=== PATIENT | female | born 1960 | race Caucasian/White ===

== ENCOUNTER → 2018-03-14 06:10 | Outpatient (CLI) | payer BC, SELFPAY ==
--- NOTE | 2018-03-14 06:13 | ECHOCS_ITS ---
Reason For Study: MVP Procedure This was a 2D Doppler, Color Flow transthoracic echocardiogram. The study was technically difficult. Contrast injection was performed. Exam performed in department. Left Ventricle Normal LV size. Left ventricular systolic function is normal. The estimated ejection fraction is 65 %. Normal diastology for age. No regional wall motion abnormalities noted. Right Ventricle Normal RV size. Normal systolic function. Atria The left atrium is mildly enlarged. Normal right atrium. No doppler evidence for ASD. Mitral Valve There is no mitral annular calcification. Normal mitral valve. Trivial mitral valve insufficiency. Tricuspid Valve Normal tricuspid valve. Trivial tricuspid valve insufficiency. Right ventricular systolic pressure estimated to be 30 mmHg. Aortic Valve The aortic valve is not well visualized. Pulmonic Valve The pulmonic valve is not well visualized. Great Vessels Normal sized aortic root. Pericardium/Pleural No pericardial effusion. Medication 22 gauge I.V. with prn adaptor inserted into right arm. [id number] given slow IV push to enhance endocardial definition. MMode/2D Measurements & Calculations LVIDd: 4.9 cm IVSd: 1.3 cm Ao root diam: 3.4 cm LVIDs: 3.6 cm LVPWd: 1.2 cm LA dimension: 3.6 cm RVDd: 3.3 cm FS: 25.8 % LAV(MOD-bp): 53.6 ml LVAd ap4: 33.5 cm2 EDV(MOD-sp2): 72.0 ml LAV(MOD-bp) Indexed: 24.3 ml/m2 EDV(MOD-sp4): 105.7 ml EF(MOD-sp2): 71.7 % LAV(MOD-sp2): 40.2 ml EDV(sp4-el): 114.7 ml LAV(MOD-sp4): 59.7 ml LVAs ap4: 17.9 cm2 ESV(MOD-sp4): 38.4 ml ESV(sp4-el): 42.7 ml EF(MOD-sp4): 63.6 % EF(sp4-el): 62.7 % SV(MOD-sp4): 67.3 ml SV(MOD-sp2): 51.7 ml SV(sp4-el): 71.9 ml LA A4 area: 21.8 cm2 RA A4 area: 12.1 cm2 Doppler Measurements & Calculations MV E max keenan: 96.3 cm/sec Lat Peak E' Keenan: 11.7 cm/sec Med Peak E' Keenan: 9.9 cm/sec MV A max keenan: 85.7 cm/sec E/E' lat: 8.2 E/E' med: 9.7 MV E/A: 1.1 Ao V2 max: 193.5 cm/sec LV V1 max: 103.6 cm/sec PA V2 max: 119.2 cm/sec Ao max P.0 mmHg LV V1 max P.3 mmHg TR max keenan: 254.7 cm/sec TR max P.5 mmHg Interpretation Summary The study was technically difficult. Contrast injection was performed. Left ventricular systolic function is normal. The estimated ejection fraction is 65 %. The left atrium is mildly enlarged. Trivial mitral valve insufficiency. Trivial tricuspid valve insufficiency. Right ventricular systolic pressure estimated to be 30 mmHg. Normal diastology for age. Ordering Physician: Be Leigh Referring Physician: Be Leigh Performed By: Noemi Shetty, RDCS, RVT
--- NOTE | 2018-03-14 13:38 | STRESSREP ---
Stress Test Report Date: 03/14/2018 Procedure: Exercise tolerance test/imaging study Indications: Chest pain Consent: Per the patient Procedure: The patient exercised on a Abner protocol for 6 minutes completing Stage 2 achieving a peak heart rate of 150 bpm (91 % predicted maximal heart rate) with a peak blood pressure 190/70 mmHg and a peak MET capacity of 7 METs. The baseline ECG demonstrated normal sinus rhythm. The peak exercise ECG demonstrated no obvious ECG changes. There were occasional PVCs during exercise and recovery. The functional capacity was considered average. There was no complaint of chest discomfort during exercise or recovery. The examination was discontinued secondary to dyspnea and leg discomfort. Impression: 1. Technically adequate (percent predicted maximal heart rate greater than 85%) exercise tolerance test 2. Peak exercise ECG no obvious ECG changes 3. Were occasional PVCs during exercise and recovery 4. Nuclear images pending Myocardial perfusion imaging study: Technique: The patient was injected with 14.6 mCi of technetium 99m Cardiolite and subsequently rest SPECT Cardiolite nuclear imaging was obtained in the horizontal long, vertical long, and short axis views. The patient exercised on a Abner protocol for 6 minutes completing Stage 2 achieving a peak heart rate of 150 bpm (91 % predicted maximal heart rate) with a peak blood pressure 190/70 mmHg and a peak MET capacity of 7 METs. The patient was injected with 44.8 mCi of technetium 99m Cardiolite and subsequently stress SPECT Cardiolite nuclear imaging was obtained in the horizontal long, vertical long, and short axis views. A gated Cardiolite study at peak stress was obtained. Interpretation: Rest and stress SPECT Cardiolite nuclear imaging status post realignment, normalization, and attenuation correction, demonstrates at rest the appearance of diminished tracer uptake in portions of the anterior and anteroseptal segments which appears to improve and/or normalize following stress. There is end systolic thickening and brightening. The gated Cardiolite study demonstrates myocardial thickening and inward wall motion. The reported LVEF is 65 %. Impression: 1. Rest and stress SPECT Cardiolite nuclear imaging demonstrate myocardial perfusion changes at rest which appear to improve and/or normalize following stress appearing compatible with shifting soft tissue attenuation/artifact with no myocardial perfusion changes considered diagnostic for associated stress-induced myocardial ischemia or previous myocardial injury/infarction. 2. The gated Cardiolite study reports an LVEF of the 65%. This note was generated with [employer] software. It may contain incorrect words, spelling, and punctuation that were not noted in checking the note before signing.
--- NOTE | 2018-03-14 13:42 | STRESSREP_ITS ---
Stress Test Report Date: 03/14/2018 Procedure: Exercise tolerance test/imaging study Indications: Chest pain Consent: Per the patient Procedure: The patient exercised on a Abner protocol for 6 minutes completing Stage 2 achieving a peak heart rate of 150 bpm (91 % predicted maximal heart rate) with a peak blood pressure 190/70 mmHg and a peak MET capacity of 7 METs. The baseline ECG demonstrated normal sinus rhythm. The peak exercise ECG demonstrated no obvious ECG changes. There were occasional PVCs during exercise and recovery. The functional capacity was considered average. There was no complaint of chest discomfort during exercise or recovery. The examination was discontinued secondary to dyspnea and leg discomfort. Impression: 1. Technically adequate (percent predicted maximal heart rate greater than 85%) exercise tolerance test 2. Peak exercise ECG no obvious ECG changes 3. Were occasional PVCs during exercise and recovery 4. Nuclear images pending Myocardial perfusion imaging study: Technique: The patient was injected with 14.6 mCi of technetium 99m Cardiolite and subsequently rest SPECT Cardiolite nuclear imaging was obtained in the horizontal long, vertical long, and short axis views. The patient exercised on a Abner protocol for 6 minutes completing Stage 2 achieving a peak heart rate of 150 bpm (91 % predicted maximal heart rate) with a peak blood pressure 190/70 mmHg and a peak MET capacity of 7 METs. The patient was injected with 44.8 mCi of technetium 99m Cardiolite and subsequently stress SPECT Cardiolite nuclear imaging was obtained in the horizontal long, vertical long, and short axis views. A gated Cardiolite study at peak stress was obtained. Interpretation: Rest and stress SPECT Cardiolite nuclear imaging status post realignment, normalization, and attenuation correction, demonstrates at rest the appearance of diminished tracer uptake in portions of the anterior and anteroseptal segm ents which appears to improve and/or normalize following stress. There is end systolic thickening and brightening. The gated Cardiolite study demonstrates myocardial thickening and inward wall motion. The reported LVEF is 65 %. Impression: 1. Rest and stress SPECT Cardiolite nuclear imaging demonstrate myocardial perfusion changes at rest which appear to improve and/or normalize following st ress appearing compatible with shifting soft tissue attenuation/artifact with no myocardial perfusion changes considered diagnostic for associated stress-induced myocardial ischemia or previous myocardial injury/infarction. 2. The gated Cardiolite study reports an LVEF of the 65%. This note was generated with [employer] software. It may contain incorrect words, spelling, and punctuation that were not noted in checking the note before signing.
== END ==
PROVIDERS: Referring Provider Internal Medicine Cardiovascular Disease; Visit Provider Internal Medicine Cardiovascular Disease
DX: R07.9 Chest pain, unspecified (principal); I34.1 Nonrheumatic mitral (valve) prolapse
CPT/HCPCS: 78452; 93017; 93306; A9500; Q9957; A4216; C8929

== ENCOUNTER 2018-03-21 08:21 | Outpatient (RCR) | payer BC, SELFPAY ==
[2018-03-21 08:48] VITALS: BP 129/79; PULSE 71; RESP 18; TEMP 37; BMI 47.0
--- NOTE | 2018-03-21 09:54 | PCM.WC.HP ---
(1) Swelling of lower extremity Status: Chronic Current Visit: Yes Code(s): M79.89 - Other specified soft tissue disorders (2) Morbid obesity with BMI of 45.0-49.9, adult Status: Chronic Current Visit: Yes Code(s): E66.01 - Morbid (severe) obesity due to excess calories; Z68.42 - Body mass index (BMI) 45.0-49.9, adult (3) Sleep apnea Status: Chronic Current Visit: No Code(s): G47.30 - Sleep apnea, unspecified (4) Bipolar disorder Status: Chronic Current Visit: No Code(s): F31.9 - Bipolar disorder, unspecified (5) Schizoaffective disorder Status: Chronic Current Visit: No Code(s): F25.9 - Schizoaffective disorder, unspecified (6) Depression Status: Chronic Current Visit: No Code(s): F32.9 - Major depressive disorder, single episode, unspecified (7) History of skin cancer Status: Chronic Current Visit: No Code(s): Z85.828 - Personal history of other malignant neoplasm of skin (8) Bilateral edema of lower extremity Status: Chronic Current Visit: Yes Code(s): R60.0 - Localized edema (9) Venous insufficiency Status: Chronic Current Visit: Yes Code(s): I87.2 - Venous insufficiency (chronic) (peripheral) History of Present Illness Date of Service: 03/21/18 Chief Complaint: Chronic swelling and edema of the lower extremities bilaterally History of Wound: This is a 57-year-old female with a long-standing history of swelling and edema in her lower extremities bilaterally. The swelling and edema has been present for many years. She has been referred by her acute dialysis registered nurse, Dr. Leigh, for evaluation and management. The patient claims to sleep on a flat mattress at night. She indicates that she is not very active. 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 She also sits a great deal at home. She denies a history of thrombophlebitis. Past Medical History Past Medical History: Chronic Problems (Last Updated 03/16/18 @ 09:46 by Mary Pappas) Swelling of lower extremity (Chronic) Morbid obesity with BMI of 45.0-49.9, adult (Chronic) Sleep apnea (Chronic) Bipolar disorder (Chronic) Schizoaffective disorder (Chronic) Depression (Chronic) History of skin cancer (Chronic) Bilateral edema of lower extremity (Chronic) Venous insufficiency (Chronic) Past Medical History: The patient denies a history of myocardial infarction, congestive heart failure, cerebrovascular accident, diabetes mellitus, hypertension, pulmonary disease, renal disease, thyroid disease, and hyperlipidemia. She has a history of skin cancer in the past, which has been excised. Surgical History: tonsillectomy, - - The patient is a AB 1 (medical termination) Allergies/Adverse Reactions: Allergies bacitracin [From Neosporin ([id number])] Adverse Reaction (Unknown, Verified 02/02/18 13:14) Unknown neomycin [From Neosporin ([id number])] Adverse Reaction (Unknown, Verified 02/02/18 13:14) Unknown polymyxin B [From Neosporin ([id number])] Adverse Reaction (Unknown, Verified 02/02/18 13:14) Unknown Home Medications: Ambulatory Orders Medication Instructions Recorded aripiprazole 15 mg tablet 15 mg PO DAILY 01/26/18 ascorbic acid (vitamin C) 500 mg 500 mg PO DAILY 01/26/18 tablet minocycline 50 mg capsule 50 mg PO .3xweek cap 01/26/18 multivitamin tablet 1 tab PO DAILY 01/26/18 omega-3 fatty acids 1,000 mg 1,000 mg PO DAILY 01/26/18 capsule vitamin B complex tablet 1 tab PO DAILY 01/26/18 cholecalciferol (vitamin D3) 2,000 1,000 unit PO DAILY tab 02/02/18 unit tablet propranolol 10 mg tablet 10 mg PO BID 02/02/18 - Family History Paternal Family History: Family History (Last Reviewed 02/02/18 @ 13:20 by Mary Pappas) Mother Hypertension Father CAD (coronary artery disease) History of coronary artery bypass surgery Social History: The patient is employed in logistics. Lives: Alone Smoking Status: Never smoker Tobacco Use: Non-smoker Alcohol: Rare Drugs: None Review of Systems Constitutional: Denies: Chills, Fever, Weight Change Eyes: Denies: Pain, Vision Change HEENT: Denies: Difficulty Hearing, Difficulty Swallowing, Sinus Congestion Cardiovascular: Denies: Chest Pain, Palpitations Respiratory: Denies: Cough, Shortness of Breath Gastrointestinal: Denies: Diarrhea, Nausea, Vomiting Genitourinary: Denies: Dysuria, Hematuria Endocrine: Denies: Heat/ Cold Intolerance, Polydipsia, Polyuria Hematologic/ Lymphatic: Denies: Easy Bruising, Easy Bleeding - Physical Exam Vital Signs Temp Pulse Resp BP 98.6 F 71 18 129/79 H 03/21/18 08:48 03/21/18 08:48 03/21/18 08:48 03/21/18 08:48 General: Alert, Oriented x3, Cooperative, No apparent distress, Well developed, Well nourished, - - The patient is obese HEENT: Atraumatic, PERRLA, EOMI, Normocephalic Oral: Moist Mucosa, No Gingival or Mucosal Lesions/ Ulcerations Neck: Supple, No JVD, Negative Carotid Bruits, Negative Hepatojugular Reflux, No Nodes, No Nuchal Rigidity, Trachea Midline Lungs: Clear to auscultation, Normal air movement, No rhonchi, No wheeze, No rales Cardiovascular: Regular rate, Regular Rhythm, Normal S1, Normal S2, No murmurs Abdomen: Soft, Non Tender, Non-Distended, Obese Extremities: No clubbing, No cyanosis, No Calf Tenderness, Edema, - - Bilateral lower extremity swelling and edema is noted. It is moderate in severity. There are no open ulcerations or wounds. Circumference measurements are documented elsewhere. There are no significant skin changes in the lower extremities. Skin: No rashes, No breakdown Wound Measurements and Assessment WC - Nurse 1 - General Ulcer Measurement Start: 03/21/18 08:47 Freq: Status: Active Protocol: Activity Type Activity Date Activity User E-Sign Co-Sign Detail Recorded Client Recorded Date Recorded By Document 03/21/18 08:48 [id number] 03/21/18 09:15 03/21/18 08:48 Wound Center Nurse 1 [Edema Assessment] -Right Calf (cm) 43 -Right Ankle (cm) 31.5 -Left Calf (cm) 42.0 -Left Ankle (cm) 30.5 WC - Nurse 2 - General Ulcer CM Notes Start: 03/21/18 08:47 Freq: Status: Active Protocol: Activity Type Activity Date Activity User E-Sign Co-Sign Detail Recorded Client Recorded Date Recorded By Document 03/21/18 09:39 [id number] 03/21/18 09:42 03/21/18 09:39 Pain Scale: 0-10 Numeric [Pain] -Is Patient Pain Free? Yes Musculoskeletal: No Muscle Wasting Neurological: Cranial nerves II-XII grossly intact, Neuro grossly intact Psych/Mental Status: Normal Affect, Appropriate, Alert and oriented to time, place, person, mood and affect Debridement Note Post-Debridement Measurements/Treatment WC - Nurse 2 - General Ulcer CM Notes Start: 03/21/18 08:47 Freq: Status: Active Protocol: Activity Type Activity Date Activity User E-Sign Co-Sign Detail Recorded Client Recorded Date Recorded By Document 03/21/18 09:39 [id number] 03/21/18 09:42 03/21/18 09:39 Pain Scale: 0-10 Numeric Is Patient Pain Free? Yes No debridement was completed today Assessment/Plan Active Problems (Last Updated 03/16/18 @ 09:46 by Mary Pappas) Swelling of lower extremity (Chronic) Morbid obesity with BMI of 45.0-49.9, adult (Chronic) Bilateral edema of lower extremity (Chronic) Venous insufficiency (Chronic) Assessment: This is a 57-year-old female with a long-standing history of swelling and edema in her lower extent bilaterally. It appears as though this may be due to long-term dependency. The patient was also noted to be overweight. The patient's other pre-existing medical conditions have been documented above. Plan: Conservative treatment measures have been discussed with the patient thoroughly. She is to elevate her lower extremities as much as possible. This is to be accomplished even during daytime hours. She currently sleeps on a flat mattress at night. Her legs are to be elevated at heart level, or higher. Activity has been encouraged. Weight loss has also been encouraged. She has been advised to refrain from prolonged idle sitting. We are to obtain a noninvasive lower extremity arterial study, as well as a venous duplex examination. The patient will return in 1-2 weeks following completion of these studies. It is anticipated that we will implement the use of compression to her lower extremities, once the arterial status of the lower extremities is defined. It is anticipated that we will start with compression wraps, such as SurePress, and ultimately transition to the use of graduated compression stockings or CircAid garments. Influenza vaccine was not administered today. The patient is not a smoker. Patient weighs 274 pounds. She stands 5 feet 4 inches tall. Her BMI is 47, which places her in a class III overweight category. Weight loss has been recommended, and collaboration with her primary care physician has been recommended.
--- NOTE | 2018-03-21 09:59 | HP.PCM_ITS ---
(1) Swelling of lower extremity Status: Chronic Current Visit: Yes Code(s): M79.89 - Other specified soft tissue disorders (2) Morbid obesity with BMI of 45.0-49.9, adult Status: Chronic Current Visit: Yes Code(s): E66.01 - Morbid (severe) obesity due to excess calories; Z68.42 - Body mass index (BMI) 45.0-49.9, adult (3) Sleep apnea Status: Chronic Current Visit: No Code(s): G47.30 - Sleep apnea, unspecified (4) Bipolar disorder Status: Chronic Current Visit: No Code(s): F31.9 - Bipolar disorder, unspecified (5) Schizoaffective disorder Status: Chronic Current Visit: No Code(s): F25.9 - Schizoaffective disorder, unspecified (6) Depression Status: Chronic Current Visit: No Code(s): F32.9 - Major depressive disorder, single episode, unspecified (7) History of skin cancer Status: Chronic Current Visit: No Code(s): Z85.828 - Personal history of other malignant neoplasm of skin (8) Bilateral edema of lower extremity Status: Chronic Current Visit: Yes Code(s): R60.0 - Localized edema (9) Venous insufficiency Status: Chronic Current Visit: Yes Code(s): I87.2 - Venous insufficiency (chronic) (peripheral) History of Present Illness Date of Service: 03/21/18 Chief Complaint: Chronic swelling and edema of the lower extremities bilaterally History of Wound: This is a 57-year-old female with a long-standing history of swelling and edema in her lower extremities bilaterally. The swelling and edema has been present for many years. She has been referred by her front end software engineer, Dr. Leigh, for evaluation and management. The patient claims to sleep on a flat mattress at night. She indicates that she is not very active. 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 She also sits a great deal at home. She denies a history of thrombophlebitis. Past Medical History Past Medical History: Chronic Problems (Last Updated 03/16/18 @ 09:46 by Mary Pappas) Swelling of lower extremity (Chronic) Morbid obesity with BMI of 45.0-49.9, adult (Chronic) Sleep apnea (Chronic) Bipolar disorder (Chronic) Schizoaffective disorder (Chronic) Depression (Chronic) History of skin cancer (Chronic) Bilateral edema of lower extremity (Chronic) Venous insufficiency (Chronic) Past Medical History: The patient denies a history of myocardial infarction, congestive heart failure, cerebrovascular accident, diabetes mellitus, hypertension, pulmonary disease, renal disease, thyroid disease, and hyperlipidemia. She has a history of skin cancer in the past, which has been excised. Surgical History: tonsillectomy, - - The patient is a AB 1 (medical termination) Allergies/Adverse Reactions: Allergies bacitracin [From Neosporin ([id number])] Adverse Reaction (Unknown, Verified 02/02/18 13:14) Unknown neomycin [From Neosporin ([id number])] Adverse Reaction (Unknown, Verified 02/02/18 13:14) Unknown polymyxin B [From Neosporin ([id number])] Adverse Reaction (Unknown, Verified 02/02/18 13:14) Unknown Home Medications: Ambulatory Orders Medication Instructions Recorded aripiprazole 15 mg tablet 15 mg PO DAILY 01/26/18 ascorbic acid (vitamin C) 500 mg 500 mg PO DAILY 01/26/18 tablet minocycline 50 mg capsule 50 mg PO .3xweek cap 01/26/18 multivitamin tablet 1 tab PO DAILY 01/26/18 omega-3 fatty acids 1,000 mg 1,000 mg PO DAILY 01/26/18 capsule vitamin B complex tablet 1 tab PO DAILY 01/26/18 cholecalciferol (vitamin D3) 2,000 1,000 unit PO DAILY tab 02/02/18 unit tablet propranolol 10 mg tablet 10 mg PO BID 02/02/18 - Family History Paternal Family History: Family History (Last Reviewed 02/02/18 @ 13:20 by Mary Pappas) Mother Hypertension Father CAD (coronary artery disease) History of coronary artery bypass surgery Social History: The patient is employed in logistics. Lives: Alone Smoking Status: Never smoker Tobacco Use: Non-smoker Alcohol: Rare Drugs: None Review of Systems Constitutional: Denies: Chills, Fever, Weight Change Eyes: Denies: Pain, Vision Change HEENT: Denies: Difficulty Hearing, Difficulty Swallowing, Sinus Congestion Cardiovascular: Denies: Chest Pain, Palpitations Respiratory: Denies: Cough, Shortness of Breath Gastrointestinal: Denies: Diarrhea, Nausea, Vomiting Genitourinary: Denies: Dysuria, Hematuria Endocrine: Denies: Heat/ Cold Intolerance, Polydipsia, Polyuria Hematologic/ Lymphatic: Denies: Easy Bruising, Easy Bleeding - Physical Exam Vital Signs Temp Pulse Resp BP 98.6 F 71 18 129/79 H 03/21/18 08:48 03/21/18 08:48 03/21/18 08:48 03/21/18 08:48 General: Alert, Oriented x3, Cooperative, No apparent distress, Well developed, Well nourished, - - The patient is obese HEENT: Atraumatic, PERRLA, EOMI, Normocephalic Oral: Moist Mucosa, No Gingival or Mucosal Lesions/ Ulcerations Neck: Supple, No JVD, Negative Carotid Bruits, Negative Hepatojugular Reflux, No Nodes, No Nuchal Rigidity, Trachea Midline Lungs: Clear to auscultation, Normal air movement, No rhonchi, No wheeze, No rales Cardiovascular: Regular rate, Regular Rhythm, Normal S1, Normal S2, No murmurs Abdomen: Soft, Non Tender, Non-Distended, Obese Extremities: No clubbing, No cyanosis, No Calf Tenderness, Edema, - - Bilateral lower extremity swelling and edema is noted. It is moderate in severity. There are no open ulcerations or wounds. Circumference measurements are documented elsewhere. There are no significant skin changes in the lower extremities. Skin: No rashes, No breakdown Wound Measurements and Assessment WC - Nurse 1 - General Ulcer Measurement Start: 03/21/18 08:47 Freq: Status: Active Protocol: Activity Type Activity Date Activity User E-Sign Co-Sign Detail Recorded Client Recorded Date Recorded By Document 03/21/18 08:48 [id number] 03/21/18 09:15 03/21/18 08:48 Wound Center Nurse 1 [Edema Assessment] -Right Calf (cm) 43 -Right Ankle (cm) 31.5 -Left Calf (cm) 42.0 -Left Ankle (cm) 30.5 WC - Nurse 2 - General Ulcer CM Notes Start: 03/21/18 08:47 Freq: Status: Active Protocol: Activity Type Activity Date Activity User E-Sign Co-Sign Detail Recorded Client Recorded Date Recorded By Document 03/21/18 09:39 [id number] 03/21/18 09:42 03/21/18 09:39 Pain Scale: 0-10 Numeric [Pain] -Is Patient Pain Free? Yes Musculoskeletal: No Muscle Wasting Neurological: Cranial nerves II-XII grossly intact, Neuro grossly intact Psych/Mental Status: Normal Affect, Appropriate, Alert and oriented to time, place, person, mood and affect Debridement Note Post-Debridement Measurements/Treatment WC - Nurse 2 - General Ulcer CM Notes Start: 03/21/18 08:47 Freq: Status: Active Protocol: Activity Type Activity Date Activity User E-Sign Co-Sign Detail Recorded Client Recorded Date Recorded By Document 03/21/18 09:39 [id number] 03/21/18 09:42 03/21/18 09:39 Pain Scale: 0-10 Numeric Is Patient Pain Free? Yes No debridement was completed today Assessment/Plan Active Problems (Last Updated 03/16/18 @ 09:46 by Mary Pappas) Swelling of lower extremity (Chronic) Morbid obesity with BMI of 45.0-49.9, adult (Chronic) Bilateral edema of lower extremity (Chronic) Venous insufficiency (Chronic) Assessment: This is a 57-year-old female with a long-standing history of swelling and edema in her lower extent bilaterally. It appears as though this may be due to long-term dependency. The patient was also noted to be overweight. The patient's other pre-existing medical conditions have been documented above. Plan: Conservative treatment measures have been discussed with the patient thoroughly. She is to elevate her lower extremities as much as possible. This is to be accomplished even during daytime hours. She currently sleeps on a flat mattress at night. Her legs are to be elevated at heart level, or higher. Activity has been encouraged. Weight loss has also been encouraged. She has been advised to refrain from prolonged idle sitting. We are to obtain a noninvasive lower extremity arterial study, as well as a venous duplex examination. The patient will return in 1-2 weeks following completion of these studies. It is anticipated that we will implement the use of compression to her lower extremities, once the arterial status of the lower extremities is defined. It is anticipated that we will start with compression wraps, such as SurePress, and ultimately transition to the use of graduated compression stockings or CircAid garments. Influenza vaccine was not administered today. The patient is not a smoker. Patient weighs 274 pounds. She stands 5 feet 4 inches tall. Her BMI is 47, which places her in a class III overweight category. Weight loss has been recommended, and collaboration with her primary care physician has been recommended.
== END 2018-04-05 23:59 ==
LOC: WC 08:21
PROVIDERS: Visit Provider Surgery
DX: R60.0 Localized edema (principal); I87.2 Venous insufficiency (chronic) (peripheral); E66.01 Morbid (severe) obesity due to excess calories; Z68.42 Body mass index [BMI] 45.0-49.9, adult; Z71.3 Dietary counseling and surveillance; G47.30 Sleep apnea, unspecified; Z85.828 Personal history of other malignant neoplasm of skin
CPT/HCPCS: 99213; G0463

== ENCOUNTER 2018-10-10 07:11 | Day surgery (SDC) | payer BC, SELFPAY ==
--- NOTE | 2018-10-10 07:26 | EKG12_ITS ---
Test Reason : PRE-OP Blood Pressure : / mmHG Vent. Rate : 059 BPM Atrial Rate : 066 BPM P-R Int : 000 ms QRS Dur : 084 ms QT Int : 408 ms P-R-T Axes : 000 035 055 degrees QTc Int : 403 ms Ectopic Atrial Tachycardia Abnormal ECG Confirmed by YEE VIVEROS, ERLIN ([id number]), marketing editor EMILY RITTER ([id number]) on 10/11/2018 1:57:57 PM Referred By: Dannie Gross Confirmed By:ERLIN FRAIRE MD
[2018-10-10 07:52] VITALS: BP 118/83; PULSE 61; RESP 16; TEMP 37; O2SAT 95; BMI 45.4
[2018-10-10 07:56] LABS: Hematocrit 42.4 % (37-47); Mean Corpuscular Hgb 30.2 pg (27.0-32.0); Mean Corpuscular Volume 91.4 fL (81-99); Mean Platelet Vol. 9.8 fl (6.2-12.0); Platelet Count 168 K/mm3 (150-450); RBC Distribution Width CV 12.6 % (11.6-14.6); RBC Distribution Width SD 42.2 fl (35.1-43.9); Red Blood Count 4.64 M/mm3 (4.2-5.4); White Blood Count 4.6 K/mm3 (4.4-11.0)
[2018-10-10 07:57] LABS: Scan Indicated on CBC? Y/N NO
--- NOTE | 2018-10-10 08:50 | SEP_PTH ---
PATIENT: SHWETA VELASCO [place] [facility] [place][id number] AGE/SX: 57/F ROOM: RE10/10/[address]: Dr. Dannie Gross MD : 1960 BED: DIS: 10/10/2018 SPEC #: [id number] RECD: 10/10/18 15:18 STATUS: SÁNCHEZ RADHA #: [id number] MILVIA: 10/10/18 08:[address]: Dannie Gross DEPT: SURGICAL PATHOLOGY RECD BY: Luis Hansen ENTERED: 10/11/18 10:49 SP TYPE: SEPTUM OTHR DR: Radha Domínguez, FLOOR POLISHER-C Tissues: Nasal septum, NOS Procedures: Decalcification bone/plaque Surgery Specimen Level III HEADER OPERATION: Septoplasty, resect/outfracture turbinates PRE-OP DIAGNOSIS: Deviated nasal septum, nasal congestion, hypertrophy of nasal turbinates, obstructive sleep apnea TISSUE SUBMITTED: Nasal bone and cartilage MICROSCOPIC DIAGNOSIS Nasal bone and cartilage: Fragments of bone and cartilage, clinically deviated nasal septum. JOHN:chiquis 10/16/18 MICROSCOPIC DESCRIPTION Slides are reviewed. GROSS DESCRIPTION Received in fixative is one container labeled with the patient's name and designated nasal bone and cartilage. The specimen consists of multiple pieces of bone and cartilage that in aggregate measure 2 x 1.5 x 0.3 cm. The entire specimen is submitted in one cassette after decalcification. / JOHN:chiquis 10/11/18 TC:5 CPT: 58997, 44110
[2018-10-10] MEDS: Oxymetazoline 0.05% 1 SPRAY SPRAY.BTL 15 SPRAY (09:30)
[2018-10-10] MEDS: Bacitracin 500 UNITS/GM PACKET (09:30)
--- NOTE | 2018-10-10 09:51 | PCM.OPRPT ---
Report of Operation Date of Procedure: 10/10/18 Pre-Operative Diagnosis: Deviated nasal septum. Nasal airway obstruction. Hypertrophy of the inferior turbinates Post-Operative Diagnosis: Nasal airway obstruction. Deviated nasal septum. Hypertrophied inferior turbinates Surgery/Procedure Performed:: Septoplasty. Partial resection of posterior and inferior turbinates Description of Surgical Findings:: Procedure Septoplasty, partial resection of posterior end of inferior turbinate The patient was placed supine on the operating room table and after satisfactory endotracheal general anesthesia been obtained sterile drapes were applied and the patient draped in the usual sterile manner. The nasal cavities were examined and the septum was noted to be dislocated into the right nasal cavity with obstruction of the posterior end of the right nasal cavity. Both inferior turbinates were noted to be markedly hypertrophic. 1% Xylocaine premix with epinephrine was infiltrated into the mucoperichondrial covering the right side of the nasal septum. A Paxton incision was made and the mucoperichondrium elevated from the quadrilateral cartilage and the mucoperiosteum from the pending of pain to the ethmoid bone. A large bony spur originating from the ethmoid bone was resected with chisel and mallet. The prep pending. Ethmoid bone was fractured and moved to the patient's left side for distance of 5 mm. The quadrilateral cartilage was repositioned in the midline. FloSeal was utilized to control bleeding and the mucoperichondrial flap was replaced and sutured with interrupted sutures of 4-0 chromic catgut. The posterior end of the inferior turbinate was resected. Bleeding was controlled with the Bovie. This procedure was performed on both sides. Lopez splints were placed in each side of the nasal septum and anchored to each other with a single mattress suture of 3-0 silk. Nasopharynx was suctioned the procedure was considered terminated and the patient returned to the recovery room in satisfactory condition. Dannie Gross Type of Anesthesia:: General Estimated Blood Loss (mL): 10 cc
[2018-10-10 10:00] VITALS: BP 118/83; BP 126/62; PULSE 64; RESP 14; TEMP 36.3; O2SAT 96
[2018-10-10 10:15] VITALS: BP 118/83; BP 127/65; PULSE 60; RESP 18; O2SAT 97
[2018-10-10 10:30] VITALS: BP 118/83; BP 128/63; PULSE 62; RESP 16; O2SAT 89
[2018-10-10 10:40] VITALS: BP 118/83; BP 123/54; PULSE 61; RESP 16; TEMP 36.3; O2SAT 97
[2018-10-10 11:24] VITALS: BP 118/83; BP 132/60; PULSE 66; RESP 16; TEMP 36.8; O2SAT 95
== END 2018-10-10 11:31 | disposition home or self-care (01) ==
LOC: SDC 07:13 → AC 07:14
PROVIDERS: Anesthesiology; Family Provider Nurse Practitioner Family; PCP Nurse Practitioner Family; Referring Provider Otolaryngology Otolaryngology/Facial Plastic Surgery; Visit Provider Otolaryngology Otolaryngology/Facial Plastic Surgery
PROC: (CPT 30520; principal; 2018-10-10 08:35)
DX: J34.2 Deviated nasal septum (principal); J34.3 Hypertrophy of nasal turbinates; G47.33 Obstructive sleep apnea (adult) (pediatric); R09.81 Nasal congestion; F32.9 Major depressive disorder, single episode, unspecified; F41.9 Anxiety disorder, unspecified; Z79.899 Other long term (current) drug therapy
CPT/HCPCS: 30140; 30520; 36415; 85027; 88304; 88311; 93005; J7120; J2405

== ENCOUNTER → 2020-03-18 | Outpatient (CLI) | payer BC, SELFPAY ==
[2019-03-09 09:01] VITALS: BMI 44.2
[2020-03-18 17:01] LABS: Allen Test Positive; Base Excess 4 mmol/L (-2 to +2); Bicarbonate 28.2 mmol/L (22-26); Blood Gas Specimen Type ART; O2 Delivery Device Room Air; PO2 69 mmHG (75-100); SITE R Brach; SO2 94 % (95-99); Total Carbon Dioxide 30 mmol/L; pCO2 43.1 mmHg (35-45); pH 7.43 (7.35-7.45)
== END | disposition home or self-care (01) ==
LOC: PSN 16:06
PROVIDERS: PCP Nurse Practitioner Family; Referring Provider Internal Medicine Pulmonary Disease; Visit Provider Internal Medicine Pulmonary Disease
DX: G47.33 Obstructive sleep apnea (adult) (pediatric) (principal); R09.02 Hypoxemia
CPT/HCPCS: 36600; 82803

== ENCOUNTER → 2022-07-23 | Outpatient (CLI) | payer BC, SELFPAY ==
--- NOTE | 2022-07-23 | CYSPIN_PTH ---
PATIENT: SHWETA VELASCO LOC: [facility] U#:[id number] AGE/SX: 61/F ROOM: RE07/23/[address]: Dr. Sanjana Anglin MD : 1960 BED: DIS: 07/23/2022 SPEC #: [id number] RECD: 07/26/22 07:49 STATUS: SÁNCHEZ RECamden #: [id number] MILVIA: 07/23/22 00:[address]: Sanjana Anglin DEPT: CYTOLOGY RECD BY: Jil Loaiza ENTERED: 07/26/22 07:49 SP TYPE: CYSPIN FL OTHR DR: Radha Domínguez, PATTERN HANGER-C Tissues: Urine Procedures: Pap Stain (control) Special Stain Group II Cytospin Fluid HEADER OPERATION: Not noted PRE-OP DIAGNOSIS: Gross hematuria TISSUE SUBMITTED: Urine for cytology DIAGNOSIS CYTOLOGY Urine for cytology (cytospin): Negative for high-grade urothelial carcinoma (OKGUC), Latoya System Category II. See comment. AM:chiquis 07/26/2022 COMMENT The Latoya System for urine cytology diagnostic categorization was used in the evaluation of this case. CYTOLOGY STUDY Slides are reviewed. CYTOLOGY GROSS Received is 20 ml of yellow cloudy fluid labeled with the patient's name and and designated per the requisition as urine. Submitted for cytology preparation. / chiquis 07/23/2022 TC:5 CPT: 65272
--- NOTE | 2022-07-23 12:34 | RAD_ITS ---
STUDY: X-RAY - ABDOMEN/PELVIS REASON FOR EXAM: Female, 61 years old. Renal calculi. TECHNIQUE: Single AP view of the abdomen / pelvis on 2 images. COMPARISON: None. FINDINGS: Normal visualized lung bases. There is an unremarkable bowel gas pattern. There is no demonstrated free abdominal air. Multiple small calcifications projected over the lower pole of the right kidney. Largest appears to be approximately 5 mm in diameter. Soft tissues otherwise normal. Normal visualized osseous structures. RAD/Abdomen Single View IMPRESSION: Multiple small calcifications projected over the lower pole of the right kidney. Electronically Signed: Mejia Olsen, at 9:52 EST ,
[2022-07-23 18:16] LABS: Cytology, Body Fluid / CSF SEE PATHOLOGY REPORT
== END | disposition home or self-care (01) ==
PROVIDERS: PCP Nurse Practitioner Family; Referring Provider Urology; Visit Provider Urology
DX: N20.0 Calculus of kidney (principal); R31.0 Gross hematuria
CPT/HCPCS: 74018; 88108; 88313

== ENCOUNTER 2022-07-28 05:55 | Day surgery (SDC) | payer BC, SELFPAY ==
[2022-07-28] VITALS (7 sets, daily range): BP systolic 107–133; BP diastolic 51–67; PULSE 77–88; RESP 16–18; TEMP 36.3–36.7; O2SAT 92–97; BMI 44.4
[2022-07-28] MEDS: Lactated Ringers 1,000 ML 15 ML IV (06:44)
[2022-07-28 07:10] LABS: Bedside Glucose 197 mg/dL (74-106)
--- NOTE | 2022-07-28 07:59 | PCM.OPRPT ---
Report of Operation Date of Procedure: 07/28/22 Pre-Operative Diagnosis: Gross hematuria, left renal stone Post-Operative Diagnosis: Same Surgery/Procedure Performed:: Cystoscopy, left renal extracorporal shockwave lithotripsy Surgeon: Sanjana Anglin Type of Anesthesia: General Description of Procedure: The patient is a 61-year-old female here for management of her left renal stones and cystoscopic evaluation for gross hematuria. Informed consent was obtained. The patient was taken to the operating room and placed on the lithotripsy table. Anesthesia monitored the head, neck, airway, IV access and vital signs throughout the case. Once anesthesia was appropriate administered, the patient was placed into dorsal lithotomy position and was prepped and draped in usual sterile fashion. The cystoscope was inserted through the urethra under direct visualization into the urinary bladder. The bladder mucosa was visualized in its entirety revealing no evidence of erythema, ulceration, mass or foreign body. At this time the cystoscope was removed and the patient was aligned with the lithotripter. 3000 shocks were then applied to the visualized left renal calculus. It appeared to be well fragmented at the conclusion of the case. The patient was then awakened and taken to the recovery room in good condition. There were no complications during this procedure. Grafts/Implants Used: None Complications None Admit VTE Documentation VTE Present on Admission: Yes VTE Mechan Device Prophylaxis: SCD's VTE Pharm Prophylaxis ordered?: No Reason prophylaxis not ordered:: Treatment Not Indicated
--- NOTE | 2022-07-28 08:03 | DCINST_ITS ---
Discharge Instructions Diet Discharge Diet: No restrictions Activity Discharge Activity: Return to Normal Activity Dressing / Incision Call your doctor if you observe: Fever of 101 or Higher, Inability to urinate and Inability to have a bowel movement Follow Up Care Please Follow Up With: Sanjana Anglin MD When: The office will call her to schedule the next procedure for the right side Test Results: Test results from this visit will be discussed in further detail at your follow- up appointment, if applicable. Discharge Plan Admission Attending Provider: Sanjana Anglin Primary Care Provider: Radha Domínguez NP Discharge Orders/Prescriptions Prescriptions: New oxycodone-acetaminophen [oxycodone-acetaminophen] 5-325 mg tablet 2 tab PO Q8H PRN PRN (Reason: Pain) 3 Days Qty: 18 0RF cephalexin [cephalexin] 500 mg capsule 500 mg PO Q12 3 Days Qty: 6 0RF Continued aripiprazole [Abilify] 15 mg tablet 30 mg PO DAILY lamotrigine [Lamictal] 100 mg tablet 400 mg PO DAILY metformin 500 mg tablet 500 mg PO BID Label Comments: TAKE 2 TABLETS BY MOUTH TWICE A DAY zinc 50 mg Tablet 50 mg PO DAILY pravastatin 20 mg tablet 20 mg PO DAILY Label Comments: TAKE 1 TABLET BY MOUTH EVERY DAY lisinopril 2.5 mg tablet 2.5 mg PO DAILY Label Comments: TAKE 1 TABLET BY MOUTH EVERY DAY bupropion HCl 150 mg Tablet Extended Release 24 Hr 150 mg PO DAILY Januvia 50 mg tablet 100 mg PO DAILY Label Comments: TAKE 1 TABLET BY MOUTH EVERY DAY fluticasone furoate-vilanterol [Breo Ellipta] 200-25 mcg/dose blister with device 1 inh INHALATION DAILY Label Comments: INHALE 1 PUFF DAILY WITH GOOD ORAL CARE biotin 5,000 mcg Tablet,Disintegrating 5,000 mcg PO DAILY cholecalciferol (vitamin D3) [Vitamin D3] 125 mcg (5,000 unit) Tablet 1,250 mcg PO QWEEK Rx Instructions: tuesday propranolol 10 mg tablet 10 mg PO BID Qty: 90 0RF Referrals / Follow Up: Radha Domínguez NP, MANUFACTURING SR ENGINEER-C [Primary Care Provider] - Disposition Disposition (needs filled in before D/C Order can be placed): Home, Self Care
[2022-07-28 09:31] LABS: Bedside Glucose 175 mg/dL (74-106)
== END 2022-07-28 10:59 | disposition home or self-care (01) ==
LOC: SDC 05:57 → AC 05:58
PROVIDERS: PCP Nurse Practitioner Family; Referring Provider Nurse Practitioner Family; Visit Provider Urology
PROC: (CPT 50590; principal; 2022-07-28 07:20)
DX: N20.0 Calculus of kidney (principal); E11.9 Type 2 diabetes mellitus without complications; R31.0 Gross hematuria; G47.33 Obstructive sleep apnea (adult) (pediatric); J45.909 Unspecified asthma, uncomplicated; F32.A Depression, unspecified; Z79.899 Other long term (current) drug therapy; Z79.84 Long term (current) use of oral hypoglycemic drugs
CPT/HCPCS: 50590; 00873; 82962; J7120; J2405

== ENCOUNTER → 2022-08-23 | Outpatient (CLI) | payer BC, SELFPAY ==
--- NOTE | 2022-08-23 10:03 | RAD_ITS ---
STUDY: X-RAY - ABDOMEN/PELVIS REASON FOR EXAM: Female, 61 years old. KIDNEY STONES TECHNIQUE: Single AP view of the abdomen / pelvis. COMPARISON: None. FINDINGS: Normal visualized lung bases. There is an unremarkable bowel gas pattern. The visualized liver, spleen and kidneys are grossly normal in size and morphology. Normal soft tissue structures. Normal visualized osseous structures. RAD/Abdomen Single View IMPRESSION: No radiodense urolithiasis noted Electronically Signed: Magen Pate MD at 16:57 EDT ,
== END | disposition home or self-care (01) ==
PROVIDERS: PCP Nurse Practitioner Family; Referring Provider Urology; Visit Provider Urology
DX: N20.0 Calculus of kidney (principal)
CPT/HCPCS: 74018

== ENCOUNTER 2022-09-02 11:01 | Day surgery (SDC) | payer BC, SELFPAY ==
[2022-09-02] MEDS: Lactated Ringers 1,000 ML 15 ML IV (11:45)
[2022-09-02 11:47] VITALS: BP 126/57; PULSE 70; RESP 18; TEMP 36.6; O2SAT 96; BMI 43.8
[2022-09-02] MEDS: Cefazolin 2 GM in 0.9% Normal Saline 100 ML IV (13:17)
--- NOTE | 2022-09-02 13:44 | EX.PCM.DISCH ---
Discharge Instructions Diet Discharge Diet: No restrictions Activity Discharge Activity: Return to Normal Activity May resume sexual activity in: No Restrictions Dressing / Incision Call your doctor if you observe: Fever of 101 or Higher, Inability to urinate and Inability to have a bowel movement Follow Up Care Please Follow Up With: Sanjana Anglin MD When: In 2 to 3 weeks in the office with a KUB prior to the appointment Test Results: Test results from this visit will be discussed in further detail at your follow-up appointment, if applicable. Discharge Plan Admission Attending Provider: Sanjana Anglin Primary Care Provider: Radha Domínguez NP Discharge Orders/Prescriptions Prescriptions: New oxycodone-acetaminophen [Percocet] 5-325 mg tablet 1 tab PO Q8H PRN (Reason: pain) 3 Days Qty: 10 0RF cephalexin [cephalexin] 500 mg capsule 500 mg PO Q12 3 Days Qty: 6 0RF Continued aripiprazole [Abilify] 15 mg tablet 30 mg PO QHS lamotrigine [Lamictal] 100 mg tablet 400 mg PO QHS metformin 500 mg tablet 1,000 mg PO BID Label Comments: TAKE 2 TABLETS BY MOUTH TWICE A DAY zinc 50 mg Tablet 50 mg PO DAILY pravastatin 20 mg tablet 20 mg PO QHS Label Comments: TAKE 1 TABLET BY MOUTH EVERY DAY lisinopril 2.5 mg tablet 2.5 mg PO QHS Label Comments: TAKE 1 TABLET BY MOUTH EVERY DAY bupropion HCl 150 mg Tablet Extended Release 24 Hr 150 mg PO DAILY Januvia 50 mg tablet 100 mg PO QHS Label Comments: TAKE 1 TABLET BY MOUTH EVERY DAY fluticasone furoate-vilanterol [Breo Ellipta] 200-25 mcg/dose blister with device 1 inh INHALATION DAILY Label Comments: INHALE 1 PUFF DAILY WITH GOOD ORAL CARE biotin 5,000 mcg Tablet,Disintegrating 5,000 mcg PO DAILY cholecalciferol (vitamin D3) [Vitamin D3] 125 mcg (5,000 unit) Tablet 1,250 mcg PO FUNK Rx Instructions: tuesday propranolol 10 mg tablet 10 mg PO BID Qty: 90 0RF Referrals / Follow Up: Radha Domínguez NP, SHINGLE GRADER-C [Primary Care Provider] - Disposition Disposition (needs filled in before D/C Order can be placed): Home, Self Care
--- NOTE | 2022-09-02 13:46 | PCM.OPRPT ---
Report of Operation Date of Procedure: 09/02/22 Pre-Operative Diagnosis: Right renal calculus Post-Operative Diagnosis: Same Surgery/Procedure Performed:: Right renal extracorporal shockwave lithotripsy Surgeon: Sanjana Anglin Type of Anesthesia: General Description of Procedure: The patient is a 61-year-old female with a known right renal calculus who now presents for surgical intervention. Informed consent was obtained. The patient was taken to the operating room and placed on the lithotripsy table. Anesthesia monitored the head, neck, airway, IV access and vital signs throughout the case. Once anesthesia was appropriately administered, the patient was aligned with the lithotripter. The stone was clearly visible. 3000 shocks were applied to the calculus which appeared to be well fragmented at the conclusion of the case. The patient was then awakened and taken to the recovery room in good condition. There were no complications during this procedure. Grafts/Implants Used: None Complications None Admit VTE Documentation VTE Present on Admission: Yes VTE Mechan Device Prophylaxis: SCD's VTE Pharm Prophylaxis ordered?: No Reason prophylaxis not ordered:: Treatment Not Indicated
[2022-09-02 13:55] LABS: Bedside Glucose 185 mg/dL (74-106)
[2022-09-02 14:17] VITALS: BP 126/100; BP 126/57; PULSE 72; RESP 16; TEMP 37; O2SAT 93
[2022-09-02 14:30] VITALS: BP 126/57; BP 135/77; PULSE 70; RESP 16; O2SAT 96
[2022-09-02 14:45] VITALS: BP 126/57; BP 142/51; PULSE 71; RESP 16; TEMP 36; O2SAT 99
[2022-09-02 15:21] LABS: Bedside Glucose 127 mg/dL (74-106)
[2022-09-02 15:29] VITALS: BP 126/57; BP 144/65; PULSE 75; RESP 16; TEMP 36.6; O2SAT 95
== END 2022-09-02 15:32 | disposition home or self-care (01) ==
LOC: SDC 11:02 → AC 11:04
PROVIDERS: PCP Nurse Practitioner Family; Visit Provider Urology
PROC: 0TF3XZZ Fragmentation in Right Kidney Pelvis, External Approach (ICD-10-PCS; CPT 50590; principal; 2022-09-02 12:40)
DX: N20.0 Calculus of kidney (principal); F25.9 Schizoaffective disorder, unspecified; F31.9 Bipolar disorder, unspecified; E66.01 Morbid (severe) obesity due to excess calories; Z68.42 Body mass index [BMI] 45.0-49.9, adult; E11.9 Type 2 diabetes mellitus without complications; R35.1 Nocturia; E78.00 Pure hypercholesterolemia, unspecified; I10 Essential (primary) hypertension; J45.909 Unspecified asthma, uncomplicated; G47.33 Obstructive sleep apnea (adult) (pediatric); Z79.84 Long term (current) use of oral hypoglycemic drugs; Z79.899 Other long term (current) drug therapy
CPT/HCPCS: 50590; 00873; 82962; J7120; J2405

== ENCOUNTER → 2022-09-28 | Outpatient (CLI) | payer BC, SELFPAY ==
--- NOTE | 2022-09-28 10:13 | RAD_ITS ---
INDICATION: KUB EXAMINATION/TECHNIQUE: X-RAY - XR Abdomen 1 View COMPARISON: 08/23/2022. FINDINGS: BOWEL GAS PATTERN: New mild small bowel ileus left mid abdomen and right mid abdomen. FREE AIR: Not assessed on a single supine view. ORGANOMEGALY: Not seen. CALCIFICATIONS: No abnormal calcifications observed. LOWER CHEST: No acute pathology. BONES AND SOFT TISSUES: Mild osteitis symphysis stable. RAD/Abdomen Single View IMPRESSION: Small bowel ileus left and right mid abdomen. Electronically Signed: Shady Mejia MD, KWAKU at 18:56 EDT ,
== END | disposition home or self-care (01) ==
LOC: MTRAD 10:10
PROVIDERS: PCP Nurse Practitioner Family; Referring Provider Urology; Visit Provider Urology
DX: N20.0 Calculus of kidney (principal)
CPT/HCPCS: 74018

== ENCOUNTER → 2022-11-12 | Outpatient (CLI) | payer BC, SELFPAY ==
[2022-11-12 16:02] LABS: Calcium,Total 9.5 mg/dL (8.5-10.1)
== END | disposition home or self-care (01) ==
PROVIDERS: PCP Nurse Practitioner Family; Referring Provider Urology; Visit Provider Urology
DX: R82.994 Hypercalciuria (principal)
CPT/HCPCS: 36415; 82310

== ENCOUNTER → 2024-05-07 | Outpatient (CLI) | payer BC, SELFPAY ==
--- NOTE | 2024-05-07 18:57 | CT_ITS ---
STUDY: CT ABDOMEN AND PELVIS WITHOUT CONTRAST REASON FOR EXAM: Female, 63 years old. History of bilateral renal calculi and prior lithotripsy. Lower pelvic cramping. RADIATION DOSAGE (If Supplied By Facility): CTDIvol = ( 23.20 ) mGy, DLP = ( 1286.96 ) mGycm TECHNIQUE: Transaxial images were obtained from the dome of the diaphragm to the symphysis pubis without oral contrast, and without intravenous contrast. Sagittal and coronal images were reconstructed. Individualized dose optimization techniques were used for this CT. COMPARISON: None. FINDINGS: The visualized lung bases are unremarkable. The visualized portions of the heart are within normal limits. Normal liver. Normal gallbladder and extrahepatic biliary system. Normal spleen. Normal pancreas. There is a small, circumscribed, smooth, low attenuation left adrenal mass, consistent with an adrenal adenoma. This measures 1.6 cm. Normal right adrenal gland. Punctate calculus in the lower pole calyx of the right kidney. 2 mm nonobstructive calculus in the posterior mid calyx of the left kidney. Normal visualized stomach. Findings suggestive of a fundus diverticulum. Normal small intestine. There are scattered colonic diverticula consistent with diverticulosis. The appendix is visualized and appears normal. There is scattered atherosclerotic calcification of the abdominal aorta, without a demonstrated aneurysm. Normal inferior vena cava. Normal retroperitoneum. Normal urinary bladder. Normal abdominal wall. Disc space narrowing and degeneration at the L5-S1 level. CT/Abdomen/Pelvis without Cont IMPRESSION: Tiny bilateral nonobstructive intrarenal calculi. Electronically Signed: Melvin Oneil MD at 11:52 EST ,
== END | disposition home or self-care (01) ==
PROVIDERS: PCP Nurse Practitioner Family; Referring Provider Urology; Visit Provider Urology
DX: N20.0 Calculus of kidney (principal)
CPT/HCPCS: 74176

== ENCOUNTER 2024-10-11 08:48 | Outpatient (RCR) | payer SELFPAY | END 2024-11-03 23:59 | LOC: NS 08:48 | PROVIDERS: PCP Nurse Practitioner Family | DX: Z71.3 Dietary counseling and surveillance (principal) ==